=== PATIENT | male | born 1970 | race Caucasian/White ===

== ENCOUNTER 2022-10-18 14:32 | Emergency (ER) | payer OTHER, SELFPAY ==
[2022-10-18 14:45] VITALS: BP 137/94; PULSE 95; RESP 20; O2SAT 97; BMI 33.5
--- NOTE | 2022-10-18 15:28 | ED.GENADUL1 ---
HPI - General Adult General Chief complaint: Dizziness Stated complaint: DIZZINESS Time Seen by Provider: 10/18/22 14:53 Source: patient Mode of arrival: Wheelchair Limitations: no limitations History of Present Illness HPI narrative: patient is a 52-year-old male who is here for medication refill. Patient takes Effexor 37.5 mg 1 tablet daily. Patient has run out of his medication, he has a refill coming, he believes he will get his refill tomorrow from his PCP. Patient is not had his medication for the last 3 days, he's having some lightheaded, dizziness. Patient has no headache, no chest pain, no shortness of breath. No nausea, vomiting, no other acute complaints. Patient states this has happened before, and he knows this is because he's run out of his medication. Patient does not want any testing to be done, he is very politely asking for medication refill for a few days until he can get his prescription from his PCP from the [place]. Related Data Home Medications Medication Instructions Recorded Confirmed venlafaxine 37.5 mg 37.5 mg PO DAILY 10/18/22 10/18/22 capsule,extended release 24 hr Allergies Allergy/AdvReac Type Severity Reaction Status Date / Time Sulfa (Sulfonamide Allergy Severe Rash Verified 10/18/22 14:43 Antibiotics) tuberculin,PPD,multi-puncture Allergy Severe Hives Verified 10/18/22 14:43 gabapentin AdvReac Severe Nausea Verified 10/18/22 14:43 Review of Systems ROS Narrative All systems are negative except as noted/marked. All systems reviewed and otherwise negative. [facility] Social History Smoking status: Heavy tobacco smoker Exam Narrative Exam Narrative: Nurses note and vital signs reviewed and patient is not hypoxic. General: The patient appears well and in no apparent distress. Patient is resting comfortably on cart. Patient is not toxic, lethargic, or listless Skin: Warm, dry, no pallor noted. There is no rash noted. No petechiae, purpura. Head: Normocephalic, atraumatic Eye: Normal conjunctiva, no drainage, EOMI. PERRL Ears, Nose, Mouth, and Throat: oral mucosa is moist. Cardiovascular: Regular Rate and Rhythm, Respiratory: Patient is in no distress, Back: non-tender, GI: soft, no tenderness Musculoskeletal: Patient has full range of motion of all of the extremities, no motor, sensory, or focal neurological deficits Neurological: A&O x3, normal speech, no strokelike signs or symptoms. Psychiatric: Cooperative Constitutional Vital Signs - 24 hr 10/18/22 14:45 Pulse Rate [Monitor] 95 H Respiratory Rate 20 Blood Pressure [Right Arm] 137/94 H Pulse Oximetry 97 Oxygen Delivery Method Room Air Course Vital Signs Vital signs: Vital Signs Pulse Rate 95 H 10/18/22 14:45 Respiratory Rate 20 10/18/22 14:45 Blood Pressure 137/94 H 10/18/22 14:45 Pulse Oximetry 97 10/18/22 14:45 Oxygen Delivery Method Room Air 10/18/22 14:45 Pulse Rate 95 H 10/18/22 14:45 Respiratory Rate 20 10/18/22 14:45 Blood Pressure 137/94 H 10/18/22 14:45 Pulse Oximetry 97 10/18/22 14:45 Oxygen Delivery Method Room Air 10/18/22 14:45 Medical Decision Making MDM Narrative Medical decision making narrative: Patient did not want any type of lab testing. Patient was given 5 tablets of Effexor 37.5 mg to help bridge the gap until he can have a prescription. Patient was very thankful for help today. Discharge Plan Discharge Chief Complaint: Dizziness Clinical Impression: Encounter for medication refill Patient Disposition: Home, Self-Care Time of Disposition Decision: 15:25 Prescriptions / Home Meds: No Action venlafaxine 37.5 mg capsule,extended release 24hr 37.5 mg PO DAILY Instructions: Medicine Refill (ED) Additional Instructions: follow-up with your refill this weekend from your PCP Stand Alone Forms: Portal Instructions Referrals: OLIVIA SMALLWOOD [Primary Care Provider] - 1 week
[2022-10-18 15:38] VITALS: BP 136/97; PULSE 74
== END 2022-10-18 15:33 | disposition home or self-care (01) ==
PROVIDERS: Emergency Provider Emergency Medicine
DX: Z76.0 Encounter for issue of repeat prescription (principal)
CPT/HCPCS: 99283